=== PATIENT | female | born 1965 | race Caucasian/White ===

== ENCOUNTER 2016-11-14 01:52 | Emergency (ER) | payer MEDICARE ==
[~2016-11-14] VITALS: Ht 160 cm; Wt 75.7 kg
[~2016-11-14 01:52] MED LIST: ACYC-101 PO; PRED50 PO
[2016-11-14 02:00] VITALS: BP 105/55; PULSE 77; RESP 18; TEMP 98.4; O2SAT 95
[2016-11-14] MEDS ORDERED: GABA300C5 PO (02:11)
[2016-11-14] MEDS ORDERED: MELO-1 PO (02:11)
[2016-11-14] MEDS ORDERED: OXYC-396 PO (02:11)
[2016-11-14] MEDS ORDERED: OXYC40TA9 PO (02:11)
[2016-11-14] MEDS ORDERED: ARIP1TAB11 PO (02:11)
[2016-11-14 02:12] VITALS: BP 105/55; PULSE 77; RESP 19; TEMP 98.4; O2SAT 95
[2016-11-14] MEDS ORDERED: BACT800T5 PO (03:20)
[2016-11-14] MEDS ORDERED: DOXY100C PO (03:20)
--- NOTE | 2016-11-14 03:20 | PD ---
HPI Chief Complaint: Laceration/Skin Injury Time Seen by Provider: 03:16 Travel History International Travel<30 days: No Contact w/Intl Traveler<30days: No Traveled to known affect area: No History of Present Illness HPI The patient is a 51-year-old female that fell Monday and her left leg has redness and swelling. She called her primary care doctor and he called in a prescription for erythromycin. The erythromycin is not working. She denies any fever, nausea or vomiting. PFSH Past Medical History Hx Anticoagulant Therapy: No Arthritis: Yes Anxiety: No Depression: Yes Cancer: No Cardiovascular Problems: No Chemotherapy: No COPD: Yes Cerebrovascular Accident: No Diabetes: No Diminished Hearing: No Endocrine: No Genitourinary: No Headaches: Yes Immune Disorder: No Implanted Vascular Access Dvce: No Musculoskeletal: Yes (DJD) Neurologic: Yes Psychiatric: Yes Reproductive: No Respiratory: No Integumentary: Yes (myofascitis lower legs ) Immunizations Current: Yes Myocardial Infarction: Yes (AT AGE 19) Tetanus Vaccination: > 5 Years Influenza Vaccination: No ?: Not Menopausal: Yes : 2 Para: 2 Past Surgical History Appendectomy: Yes Section: Yes Gynecologic Surgery: Yes (C-SEC) Hysterectomy: No Joint Replacement: Yes (KNEE SURGERY X 3) Neurologic Surgery: No Other Surgery: Yes () Social History Alcohol Use: No Tobacco Use: Yes (1 PACK DAILY, 40 years) Substance Use: No Allergies-Medications (Allergen,Severity, Reaction): Coded Allergies: Amoxicillin (Unverified Allergy, Severe, 11/14/16) angioedema Latex (Verified Allergy, Severe, Hives, 11/14/16) Contrast Media (Verified Allergy, Intermediate, Hives, 11/14/16) Iodine (Verified Allergy, Mild, Hives, 11/14/16) Bees (Verified Adverse Reaction, Severe, Anaphylaxis, 11/14/16) Uncoded Allergies: CT SCAN DYE (Allergy, Severe, 05/18/11) WALNUTS (Allergy, Unknown, 01/01/14) IMITATION CRAB (Adverse Reaction, Severe, Anaphylaxis, 09/06/10) Reported Meds & Prescriptions Reported Meds & Active Scripts Active Prednisone 50 Mg Tab 50 Mg PO DAILY 5 Days Zovirax (Acyclovir) 800 Mg Tab 800 Mg PO 5 TIMES A DAY 7 Days Reported Aripiprazole 5 Mg Tab 5 Mg PO DAILY Oxycodone (Oxycodone HCl) 20 Mg Tab 20 Mg PO Q12HR Oxycontin (Oxycodone HCl) 40 Mg Tab 40 Mg PO Q8HR Meloxicam 15 Mg Tab 15 Mg PO DAILY Gabapentin 300 Mg Cap 300 Mg PO TID Review of Systems Except as stated in HPI: all other systems reviewed are Neg Physical Exam Narrative GENERAL: Well-nourished, well-developed patient in slight apparent distress with her left leg pain. SKIN: Focused skin assessment warm/dry. The left lower leg has an area of cellulitis that is about 20 x 8 cm in diameters. No lymphadenitis is present. HEAD: Normocephalic. EYES: No scleral icterus. No injection or drainage. NECK: Supple, trachea midline. No JVD or lymphadenopathy. CARDIOVASCULAR: Regular rate and rhythm without murmurs, gallops, or rubs. RESPIRATORY: Breath sounds equal bilaterally. No accessory muscle use. GASTROINTESTINAL: Abdomen soft, non-tender, nondistended. MUSCULOSKELETAL: No cyanosis, or edema. BACK: Nontender without obvious deformity. No CVA tenderness. Data Data Last Documented VS Vital Signs Date Time Temp Pulse Resp B/P Pulse Ox O2 Delivery O2 Flow Rate FiO2 11/14/16 02:12 98.4 77 19 105/55 95 11/14/16 02:00 Room Air MDM Medical Decision Making Medical Screen Exam Complete: Yes Emergency Medical Condition: Yes Medical Record Reviewed: Yes Differential Diagnosis Cellulitis left lower leg, lymphadenitis left lower leg, abscess left lower leg , allergic reaction Narrative Course The patient has cellulitis left lower leg. Plan: She will be put on Septra and doxycycline. She should follow-up with her primary care physician. If worse she should return to emergency room for consideration of admission. Diagnosis Primary Impression: Cellulitis of left lower extremity Additional Instructions: As we discussed, return to emergency department if you get worse. You may have to be admitted. Also, elevate your left leg above your heart. Med/Other Pt SpecificInfo: Prescription(s) given Scripts Doxycycline Hyclate 100 Mg [id number] Mg PO BID #20 CAP Ref 0 Prov:Dallin Beatty MD 11/14/16 Sulfamethoxazole-Trimethoprim (Bactrim DS)800-160 Mg Tab1 Tab PO BID #20 TAB Ref 0 Prov:Dallin Beatty MD 11/14/16 Disposition: 01 DISCHARGE HOME Condition: Stable Dallin Beatty MD November 14, 2016 03:20
[2016-11-14 03:27] VITALS: BP 110/54; TEMP 98.5
[2016-11-14] MEDS ORDERED: SULFAMETHOXAZOLE-TRIMETHOPRIM DS 800-160 MG TAB PO ONE (03:30)
[2016-11-14] MEDS ORDERED: DOXYCYCLINE HYCLATE 100 MG CAP PO ONE (03:30)
== END 2016-11-14 03:35 | disposition home or self-care (01) ==
LOC: PHED 01:52
DX: L03.116 Cellulitis of left lower limb (principal); M19.90 Unspecified osteoarthritis, unspecified site; F32.9 Major depressive disorder, single episode, unspecified; J44.9 Chronic obstructive pulmonary disease, unspecified; I25.2 Old myocardial infarction; F17.200 Nicotine dependence, unspecified, uncomplicated; Z79.899 Other long term (current) drug therapy
CPT/HCPCS: 99283

== ENCOUNTER 2016-11-19 15:31 | Emergency (ER) | payer MEDICARE ==
[~2016-11-19] VITALS: Ht 160 cm; Wt 79.3 kg
[~2016-11-19 15:31] MED LIST changes: +ARIP1TAB11 PO; +BACT800T5 PO; +DOXY100C PO; +GABA300C5 PO; +MELO-1 PO; +OXYC-396 PO; +OXYC40TA9 PO
[2016-11-19 15:42] VITALS: BP 99/56; PULSE 68; RESP 17; TEMP 98.1; O2SAT 99
[2016-11-19] MEDS ORDERED: PANTOPRAZOLE SODIUM 40 MG VIAL IV PUSH ONE (16:00)
[2016-11-19] MEDS ORDERED: ATROPINE/SCOPOLAM/HYOSCYAM/PB ELIXIR 10 ML CUP PO ONE (16:00)
[2016-11-19] MEDS ORDERED: ALUMINUM/MAGNESIUM/SIMETH 30 ML CUP PO ONE (16:00)
[2016-11-19 16:05] VITALS: O2SAT 94
--- NOTE | 2016-11-19 16:08 | PD ---
HPI Chief Complaint: Pain: Acute or Chronic Time Seen by Provider: 15:48 Travel History International Travel<30 days: No Contact w/Intl Traveler<30days: No Traveled to known affect area: No History of Present Illness HPI 51-year-old female complains of reflux symptom, joint pain, substernal chest pain and nausea and dyspepsia. Patient started having left leg redness and swelling after a fall recently. Patient was given erythromycin by her physician. Patient states that she had persistent redness and swelling of the right leg despite taking erythromycin. Patient was seen in emergency room 5 days ago. Patient was instructed to stop erythromycin and was given prescription for Septra and doxycycline. Patient states that she has been taking the medications as directed. Patient started having reflux symptom including burning substernally, nausea, dyspepsia. Patient also states that she has sharp shooting pain substernally occasionally. Patient also started having joint pain of extremity. Patient states that the symptoms started several days ago. Patient denies any fever or chills. Patient denies any headache. Patient denies any abdominal pain. Patient denies any focal weakness or numbness of extremity. Patient has history of chronic pain and has been taking oxycodone and OxyContin. PFSH Past Medical History Hx Anticoagulant Therapy: No Arthritis: Yes Anxiety: No Depression: Yes Cancer: No Cardiovascular Problems: No Chemotherapy: No COPD: Yes Cerebrovascular Accident: No Diabetes: No Diminished Hearing: No Endocrine: No Genitourinary: No Headaches: Yes Immune Disorder: No Implanted Vascular Access Dvce: No Musculoskeletal: Yes (DJD) Neurologic: Yes Psychiatric: Yes Reproductive: No Respiratory: No Integumentary: Yes (myofascitis lower legs ) Immunizations Current: Yes Myocardial Infarction: Yes (AT AGE 19) Tetanus Vaccination: > 5 Years Influenza Vaccination: No ?: Not Menopausal: Yes : 2 Para: 2 Past Surgical History Appendectomy: Yes Section: Yes Gynecologic Surgery: Yes (C-SEC) Hysterectomy: No Joint Replacement: Yes (KNEE SURGERY X 3) Neurologic Surgery: No Other Surgery: Yes () Social History Alcohol Use: No Tobacco Use: Yes (1.5 PPD) Substance Use: No Allergies-Medications (Allergen,Severity, Reaction): Coded Allergies: Amoxicillin (Verified Allergy, Severe, 11/19/16) angioedema Latex (Verified Allergy, Severe, Hives, 11/19/16) Contrast Media (Verified Allergy, Intermediate, Hives, 11/19/16) Iodine (Verified Allergy, Mild, Hives, 11/19/16) Bees (Verified Adverse Reaction, Severe, Anaphylaxis, 11/19/16) Uncoded Allergies: CT SCAN DYE (Allergy, Severe, 05/18/11) WALNUTS (Allergy, Unknown, 01/01/14) IMITATION CRAB (Adverse Reaction, Severe, Anaphylaxis, 09/06/10) Reported Meds & Prescriptions Reported Meds & Active Scripts Active Doxycycline Hyclate 100 Mg Cap 100 Mg PO BID Bactrim DS (Sulfamethoxazole-Trimethoprim) 800-160 Mg Tab 1 Tab PO BID Reported Aripiprazole 5 Mg Tab 5 Mg PO DAILY Oxycodone (Oxycodone HCl) 20 Mg Tab 20 Mg PO Q12HR Oxycontin (Oxycodone HCl) 40 Mg Tab 40 Mg PO Q8HR Meloxicam 15 Mg Tab 15 Mg PO DAILY Gabapentin 300 Mg Cap 300 Mg PO TID Review of Systems General / Constitutional: No: Fever Eyes: No: Visual changes HENT: No: Headaches Cardiovascular: No: Chest Pain or Discomfort Respiratory: No: Shortness of Breath Gastrointestinal: Positive: Nausea, Indigestion, No: Abdominal Pain Genitourinary: No: Dysuria Musculoskeletal: Positive: Pain Skin: No Rash Neurologic: No: Weakness Psychiatric: No: Depression Endocrine: No: Polydipsia Hematologic/Lymphatic: No: Easy Bruising Physical Exam Narrative GENERAL: Well-nourished, well-developed patient. SKIN: Focused skin assessment warm/dry. HEAD: Normocephalic. EYES: No scleral icterus. No injection or drainage. NECK: Supple, trachea midline. No JVD or lymphadenopathy. CARDIOVASCULAR: Regular rate and rhythm without murmurs, gallops, or rubs. RESPIRATORY: Breath sounds equal bilaterally. No accessory muscle use. GASTROINTESTINAL: Abdomen soft, non-tender, nondistended. MUSCULOSKELETAL: Patient has mild redness with tenderness on palpation left low leg on anterior lateral aspect of the left lower leg mid leg area. No calf Tenderness. No induration. No discharge. Sensorimotor function distally intact. BACK: Nontender without obvious deformity. No CVA tenderness. Neurologic exam normal. Data Data Last Documented VS Vital Signs Date Time Temp Pulse Resp B/P Pulse Ox O2 Delivery O2 Flow Rate FiO2 11/19/16 16:05 94 Room Air 11/19/16 15:50 18 11/19/16 15:42 98.1 68 99/56 Orders Electrocardiogram (11/19/16 15:57) Complete Blood Count With Diff (11/19/16 15:57) Comprehensive Metabolic Panel (11/19/16 15:57) Creatine Kinase (Cpk) (11/19/16 15:57) Troponin I (11/19/16 15:57) Prothrombin Time / Inr (Pt) (11/19/16 15:57) Act Partial Throm Time (Ptt) (11/19/16 15:57) Lipase (11/19/16 15:57) Urinalysis - C+S If Indicated (11/19/16 15:57) Westergren Sedimentation Rate (11/19/16 15:57) Chest, Single Ap (11/19/16 15:57) Iv Access Insert/Monitor (11/19/16 15:57) Ecg Monitoring (11/19/16 15:57) Oximetry (11/19/16 15:57) Pantoprazole Inj (Protonix Inj) (11/19/16 16:00) Al-Mag Hy-Si 40-40-4 Mg/Ml Liq (Mag-Al P (11/19/16 16:00) Kucpc-Gcpmzt-Hemwdl-Pb Liq ( Liq (11/19/16 16:00) Pantoprazole (Protonix) (11/19/16 16:30) Clindamycin Inj (Cleocin Inj) (11/19/16 16:30) Labs Laboratory Tests Test 11/19/16 11/19/16 16:00 16:20 Urine Collection Type CLEAN CATCH Urine Color YELLOW Urine Turbidity SLIGHT Urine pH 6.5 Urine Specific [place] 1.022 Urine Protein TRACE mg/dL Urine Glucose (UA) NEG mg/dL Urine Ketones NEG mg/dL Urine Occult Blood MOD Urine Nitrite NEG Urine Bilirubin NEG Urine Leukocyte Esterase NEG Urine RBC 10-14 /hpf Urine Squamous Epithelial 6-8 /hpf Cells Urine Amorphous Sediment FEW Microscopic Urinalysis Comment CULT NOT INDICATED Urine Collection Time 1600 White Blood Count 6.0 TH/MM3 Red Blood Count 4.37 MIL/MM3 Hemoglobin 10.9 GM/DL Hematocrit 33.3 % Mean Corpuscular Volume 76.2 FL Mean Corpuscular Hemoglobin 25.0 PG Mean Corpuscular Hemoglobin 32.8 % Concent Red Cell Distribution Width 15.1 % Platelet Count 419 TH/MM3 Mean Platelet Volume 6.6 FL Neutrophils (%) (Auto) 61.9 % Lymphocytes (%) (Auto) 31.8 % Monocytes (%) (Auto) 5.5 % Eosinophils (%) (Auto) 0.1 % Basophils (%) (Auto) 0.7 % Neutrophils # (Auto) 3.8 TH/MM3 Lymphocytes # (Auto) 1.9 TH/MM3 Monocytes # (Auto) 0.3 TH/MM3 Eosinophils # (Auto) 0.0 TH/MM3 Basophils # (Auto) 0.0 TH/MM3 CBC Comment AUTO DIFF Differential Comment AUTO DIFF CONFIRMED Platelet Estimate NORMAL Platelet Morphology Comment NORMAL Rouleau PRESENT Erythrocyte Sedimentation Rate 6 mm/hr Prothrombin Time 11.3 SEC Prothromb Time International 1.0 RATIO Ratio Activated Partial 45.0 SEC Thromboplast Time Sodium Level 134 MEQ/L Potassium Level 4.0 MEQ/L Chloride Level 100 MEQ/L Carbon Dioxide Level 26.8 MEQ/L Anion Gap 7 MEQ/L Blood Urea Nitrogen 12 MG/DL Creatinine 0.75 MG/DL Estimat Glomerular Filtration 81 ML/MIN Rate Random Glucose 107 MG/DL Calcium Level 8.4 MG/DL Total Bilirubin 0.2 MG/DL Aspartate Amino Transf 8 U/L (AST/SGOT) Alanine Aminotransferase 11 U/L (ALT/SGPT) Alkaline Phosphatase 88 U/L Total Creatine Kinase 47 U/L Troponin I LESS THAN 0.02 NG/ML Total Protein 8.3 GM/DL Albumin 2.3 GM/DL Lipase 68 U/L [facility] Medical Decision Making Medical Screen Exam Complete: Yes Emergency Medical Condition: Yes Interpretation(s) 1726 PM. Last Impressions Chest X-Ray 11/19/16 [id number] Signed Impressions: Service Date/Time: Saturday, November 19, 2016 16:36 - CONCLUSION: No acute cardiopulmonary process. Alvin Luther MD 1726 PM. CBC with WBC 6.0. Hemoglobin 10.9 hematocrit 33.3. MCV 76. Normal differential. Sodium 134. Cardiac enzymes are normal. UA is negative. Differential Diagnosis Differential diagnosis including gastritis, PUD, pancreatitis, cholecystitis, colitis, UTI, pyelonephritis, angina, CA, PE, pneumothorax. Narrative Course 51-year-old female with reflux symptoms, joint pain, nausea and dyspepsia. Patient being treated for left leg cellulitis with doxycycline and Septra. Diagnosis Primary Impression: Atypical chest pain Additional Impressions: GERD (gastroesophageal reflux disease) Qualified Code: K21.9 - Gastroesophageal reflux disease without esophagitis Left leg cellulitis Patient Instructions: General Instructions Additional Instructions: Stop doxycycline. Continue with Septra as directed. Clindamycin as directed. Follow-up with personal physician. Return if worse. Take Protonix as directed. Med/Other Pt SpecificInfo: Prescription(s) given, Existing Med Changed Scripts Pantoprazole (Protonix)20 Mg Tab20 Mg PO DAILY #30 TAB Prov:Arley George MD 11/19/16 Clindamycin 150 Mg Cap2 Tab PO Q6H #80 CAP Prov:Arley George MD 11/19/16 Disposition: 01 DISCHARGE HOME Condition: Stable Arley George MD November 19, 2016 16:08
[2016-11-19 16:27] LABS: AUTOMATED NEUTROPHIL # 3.8 TH/MM3 (1.8-7.7); BASOPHIL % 0.7 % (0.0-2.0); EOSINOPHIL % 0.1 % (0.0-4.0); HEMATOCRIT 33.3 % (35.0-46.0); LYMPH % 31.8 % (9.0-44.0); LYMPHOCYTE # 1.9 TH/MM3 (1.0-4.8); MEAN CELL VOLUME 76.2 FL (80.0-100.0); MEAN CORPUSCULAR HGB CONC 32.8 % (32.0-36.0); MONO % 5.5 % (0.0-8.0); NEUT % 61.9 % (16.0-70.0); PLATELET COUNT 419 TH/MM3 (150-450); RED BLOOD COUNT 4.37 MIL/MM3 (4.00-5.30); RED CELL DISTRIBUTION WIDTH 15.1 % (11.6-17.2)
[2016-11-19] MEDS ORDERED: PANTOPRAZOLE SOD 20 MG DELAYED RELEASE TAB PO ONE (16:30)
[2016-11-19] MEDS ORDERED: CLINDAMYCIN PHOS 600 MG/4 ML VIAL IM ONE (16:30)
[2016-11-19 16:33] LABS: HEMO FLAGS AUTO DIFF
[2016-11-19 16:33] LABS: GLUCOSE,URINE NEG (NEG); KETONE, URINE NEG (NEG); NITRITE,URINE NEG (NEG); PH, URINE 6.5 (5.0-8.5)
[2016-11-19 16:36] LABS: CHLORIDE 100 MEQ/L (98-107); SODIUM (NA) 134 MEQ/L (136-145)
[2016-11-19 16:40] LABS: ANION GAP 7 MEQ/L (5-15); BICARBONATE 26.8 MEQ/L (21.0-32.0); BLOOD UREA NITROGEN 12 MG/DL (7-18)
[2016-11-19 16:41] LABS: PROTHROMBIN TIME - PATIENT 11.3 SEC (9.8-11.6)
[2016-11-19 16:42] LABS: ALT (GPT) 11 U/L (10-53)
--- NOTE | 2016-11-19 16:42 | RADHPO ---
EXAM DATE/TIME: 11/19/2016 16:36 [facility] COMPARISON: CHEST SINGLE AP, October 14, 2013, 17:38. INDICATIONS : Patient complains of joint pain of entire body. MEDICAL HISTORY : Chronic obstructive pulmonary disease. SURGICAL HISTORY : None. ENCOUNTER: Initial ACUITY: 1 week PAIN SCORE: 7/10 LOCATION: Bilateral chest FINDINGS: A single view of the chest demonstrates the lungs to be symmetrically aerated without evidence of mas s, infiltrate or effusion. The cardiomediastinal contours are unremarkable. Osseous structures are intact. CONCLUSION: No acute cardiopulmonary process. Alvin Luther MD on November 19, 2016 at 16:39 Board Certified Radiologist. This report was verified electronically.
[2016-11-19 16:43] LABS: AST (GOT) 8 U/L (15-37); GLOMERULAR FILTRATION RATE 81 ML/MIN (>89)
[2016-11-19 16:44] LABS: TOTAL BILIRUBIN ADULT 0.2 MG/DL (0.2-1.0)
[2016-11-19 16:44] LABS: BLOOD, URINE MOD (NEG)
[2016-11-19 16:45] LABS: ALKALINE PHOSPHATASE 88 U/L (45-117)
[2016-11-19 16:51] LABS: METHOD OF COLLECTION CLEAN CATCH; URINE COLOR YELLOW (YELLW/STRAW)
[2016-11-19 16:52] LABS: COMMENT (UR) CULT NOT INDICATED; COMMENT2 (UR) MUCOUS PRESENT; CULTURE IF INDICATED CULT NOT INDICATED
[2016-11-19 16:54] LABS: CREATINE KINASE 47 U/L (26-192)
[2016-11-19 17:13] LABS: PLATELET ESTIMATE SMEAR NORMAL (NORMAL); PLATELET MORPHOLOGY NORMAL (NORMAL); ROULEAUX PRESENT (NORMAL); SCAN/DIFF AUTO DIFF CONFIRMED
[2016-11-19] MEDS ORDERED: PANT20 PO (17:31)
[2016-11-19] MEDS ORDERED: CLIN1CAP5 PO (17:31)
[2016-11-19 17:40] VITALS: BP 117/58; PULSE 60; RESP 16; O2SAT 98
--- NOTE | 2016-11-20 16:41 | EKG ---
Date Performed: 11/19/2016 Time Performed: 16:01:10 PTAGE: 51 years EKG: Sinus rhythm Low QRS voltages in precordial leads Borderline ECG NO PREVIOUS TRACING DOCTOR: Claudia Jarquin Interpretating Date/Time 11/20/2016 16:40:04
== END 2016-11-19 17:40 | disposition home or self-care (01) ==
LOC: PHED 15:31
DX: K21.9 Gastro-esophageal reflux disease without esophagitis (principal); R07.89 Other chest pain; L03.116 Cellulitis of left lower limb; J44.9 Chronic obstructive pulmonary disease, unspecified; I25.2 Old myocardial infarction; F32.9 Major depressive disorder, single episode, unspecified; M19.90 Unspecified osteoarthritis, unspecified site
CPT/HCPCS: 71010; 80053; 81001; 82550; 83690; 84484; 85025; 85610; 85652; 85730; 93005; 96372

== ENCOUNTER 2016-11-29 10:18 | Emergency (ER) | payer OTHER, MEDICARE ==
[~2016-11-29] VITALS: Ht 160 cm; Wt 78.0 kg
[~2016-11-29 10:18] MED LIST changes: -ACYC-101 PO; +CLIN1CAP5 PO; +PANT20 PO; -PRED50 PO
[2016-11-29 10:25] VITALS: BP 110/64; PULSE 82; RESP 18; TEMP 97.8; O2SAT 98
[2016-11-29] MEDS ORDERED: GABA600T PO (10:36)
[2016-11-29] MEDS ORDERED: SODIUM CHLORIDE 0.9% FLUSH 10 ML FLUSH IVF PRN (10:45)
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
[2016-11-29 10:59] VITALS: RESP 18; O2SAT 98
[2016-11-29] MEDS ORDERED: KETOROLAC TROMETHAMINE 30 MG/ML (IVP) VIAL IV PUSH ONE (11:00)
[2016-11-29] MEDS ORDERED: ARIP1TAB5 PO (11:10)
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
[2016-11-29 11:23] LABS: BASOPHIL # 0.1 TH/MM3 (0-0.2); BASOPHIL % 1.1 % (0.0-2.0); EOSINOPHIL % 0.7 % (0.0-4.0); HEMATOCRIT 35.5 % (35.0-46.0); HEMO FLAGS DIFF FINAL; LYMPH % 32.9 % (9.0-44.0); LYMPHOCYTE # 2.2 TH/MM3 (1.0-4.8); MEAN CELL VOLUME 76.6 FL (80.0-100.0); MEAN CORPUSCULAR HGB CONC 32.7 % (32.0-36.0); MONO % 6.1 % (0.0-8.0); NEUT % 59.2 % (16.0-70.0); PLATELET COUNT 436 TH/MM3 (150-450); RED BLOOD COUNT 4.63 MIL/MM3 (4.00-5.30); RED CELL DISTRIBUTION WIDTH 16.9 % (11.6-17.2); WHITE BLOOD COUNT 6.7 TH/MM3 (4.0-11.0)
[2016-11-29 11:40] LABS: APTT (PATIENT) 24.3 SEC (24.3-30.1); PROTHROMBIN TIME - PATIENT 11.4 SEC (9.8-11.6)
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
[2016-11-29 11:55] VITALS: BP 113/68; PULSE 64; RESP 17; TEMP 97.8; O2SAT 98
[2016-11-29 11:56] LABS: BICARBONATE 29.3 MEQ/L (21.0-32.0)
[2016-11-29 11:57] LABS: POTASSIUM 5.4 MEQ/L (3.5-5.1)
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
[2016-11-29 12:02] VITALS: RESP 18
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
[2016-11-29] MEDS ORDERED: META1TAB17 PO ×2 (12:33→12:41)
[2016-11-29 12:40] VITALS: BP 128/76; TEMP 97.8
== END 2016-11-29 12:40 | disposition home or self-care (01) ==
LOC: NEPC 10:18
DX: R51 Headache (principal); M54.5 Low back pain; R07.9 Chest pain, unspecified; F17.200 Nicotine dependence, unspecified, uncomplicated; V49.40XA Driver injured in collision with unspecified motor vehicles in traffic accident, initial encounter
CPT/HCPCS: 70450; 71010; 72125; 74176; 80048; 85025; 85610; 85730; 96374; 99285; J1885; L0150

== ENCOUNTER 2017-03-26 08:20 | Emergency (ER) | payer MEDICARE ==
[~2017-03-26 08:20] MED LIST changes: +ARIP1TAB5 PO; -BACT800T5 PO; -CLIN1CAP5 PO; -DOXY100C PO; -GABA300C5 PO; +GABA600T PO; -MELO-1 PO; +META1TAB17 PO; -OXYC40TA9 PO; -PANT20 PO
[2017-03-26 08:24] VITALS: BP 107/53; PULSE 75; RESP 18; TEMP 98.1; O2SAT 95
[2017-03-26] MEDS ORDERED: OXYC30TA62 PO (08:38)
[2017-03-26] MEDS ORDERED: BACT800T5 PO (08:44)
[2017-03-26] MEDS ORDERED: CHERSYP2 PO (08:44)
[2017-03-26] MEDS ORDERED: PRED10PA PO (08:44)
--- NOTE | 2017-03-26 08:45 | PD ---
HPI Chief Complaint: GI Complaint Time Seen by Provider: 08:40 Travel History International Travel<30 days: No Contact w/Intl Traveler<30days: No Traveled to known affect area: No History of Present Illness HPI Patient presents with complaints of cough and sore throat and heartburn. Subjective fever. No new rashes. She is a smoker. Denies nausea vomiting or diarrhea. No new rashes. Denies chest pain or shortness of breath. Denies urinary or bowel symptoms. PFSH Past Medical History Hx Anticoagulant Therapy: No Arthritis: Yes Anxiety: No Depression: Yes Cancer: No Cardiovascular Problems: No Chemotherapy: No COPD: Yes Cerebrovascular Accident: No Diabetes: No Diminished Hearing: No Endocrine: No GERD: Yes Genitourinary: No Headaches: Yes Immune Disorder: No Implanted Vascular Access Dvce: No Musculoskeletal: Yes (DJD, CHRONIC LEG PAIN SEES PAIN MANAGEMENT) Neurologic: Yes Psychiatric: Yes Reproductive: No Respiratory: No Integumentary: Yes (myofascitis lower legs ) Immunizations Current: Yes Myocardial Infarction: Yes (AT AGE 19) ?: Not Menopausal: Yes : 2 Para: 2 Past Surgical History Appendectomy: Yes Section: Yes Gynecologic Surgery: Yes Hysterectomy: No Joint Replacement: Yes (KNEE SURGERY X 3) Neurologic Surgery: No Other Surgery: Yes () Social History Alcohol Use: No Tobacco Use: Yes (1.5 PPD) Substance Use: No Allergies-Medications (Allergen,Severity, Reaction): Coded Allergies: amoxicillin (Unverified Allergy, Severe, swelling, 03/26/17) angioedema latex (Unverified Allergy, Severe, Hives, 03/26/17) diatrizoate meglumine (Unverified Allergy, Intermediate, Hives, 03/26/17) gadobenic acid (Unverified Allergy, Intermediate, Hives, 03/26/17) gadodiamide (Unverified Allergy, Intermediate, Hives, 03/26/17) gadoteridol (Unverified Allergy, Intermediate, Hives, 03/26/17) iodixanol (Unverified Allergy, Intermediate, Hives, 03/26/17) iohexol (Unverified Allergy, Intermediate, Hives, 03/26/17) iodine (Unverified Allergy, Mild, Hives, 03/26/17) potassium iodide (Unverified Allergy, Mild, Hives, 03/26/17) sodium iodide (Unverified Allergy, Mild, Hives, 03/26/17) bee venom protein (honey bee) (Unverified Adverse Reaction, Severe, Anaphylaxis, 03/26/17) Uncoded Allergies: IMITATION CRAB (Adverse Reaction, Severe, Anaphylaxis, 09/06/10) Reported Meds & Prescriptions Reported Meds & Active Scripts Active Reported Oxycontin (Oxycodone HCl) 30 Mg Tab 40 Mg PO Q8HR Abilify (Aripiprazole) 10 Mg Tab 10 Mg PO DAILY Gabapentin 600 Mg Tab 300 Mg PO TID Oxycodone (Oxycodone HCl) 20 Mg Tab 20 Mg PO Q12HR Review of Systems General / Constitutional: Positive: Fever Eyes: No: Visual changes HENT: Positive: Sore Throat, No: Headaches Cardiovascular: No: Chest Pain or Discomfort Respiratory: Positive: Cough, No: Shortness of Breath Gastrointestinal: No: Abdominal Pain Genitourinary: No: Dysuria Musculoskeletal: No: Pain Skin: No Rash Neurologic: No: Weakness Psychiatric: No: Depression Endocrine: No: Polydipsia Hematologic/Lymphatic: No: Easy Bruising Physical Exam Narrative GENERAL: Well-nourished, well-developed patient. SKIN: Focused skin assessment warm/dry. HEAD: Normocephalic. Throat erythematous mild adenopathy no exudate EYES: No scleral icterus. No injection or drainage. NECK: Supple, trachea midline. No JVD or lymphadenopathy. CARDIOVASCULAR: Regular rate and rhythm without murmurs, gallops, or rubs. RESPIRATORY: Coarse in all [place] GASTROINTESTINAL: Abdomen soft, non-tender, nondistended. MUSCULOSKELETAL: No cyanosis, or edema. BACK: Nontender without obvious deformity. No CVA tenderness. Data Data Last Documented VS Vital Signs Date Time Temp Pulse Resp B/P (MAP) Pulse Ox O2 Delivery O2 Flow Rate FiO2 03/26/17 08:24 98.1 75 18 107/53 (71) 95 Room Air MDM Medical Decision Making Medical Screen Exam Complete: Yes Emergency Medical Condition: Yes Differential Diagnosis Pharyngitis, bronchitis, pneumonia, tobacco abuse Narrative Course Assessment and plan discussed with patient at bedside Diagnosis Primary Impression: Pharyngitis Qualified Codes: J02.9 - Acute pharyngitis, unspecified Patient Instructions: General Instructions Additional Instructions: Rest fluids and Motrin, follow-up with PCP, return to emergency room with any onset of new symptoms. Encouraged smoking cessation. Med/Other Pt SpecificInfo: Prescription(s) given Scripts Guaifenesin-Codeine Liq (Cheratussin AC Liq) 100-10 Mg/5 Ml Syrp 10 ML PO Q4H Y for COUGH AND COLD SYMPTOMS, #120 ML 0 Refills Do not exceed 6 doses/24 hrs. Prov: Cuba Yu MD 03/26/17 Sulfamethoxazole-Trimethoprim (Bactrim DS) 800-160 Mg Tab 1 TAB PO BID for Infection, #20 TAB 0 Refills Prov: Cuba Yu MD 03/26/17 Prednisone (21) 10 mg tab Dose Pack (Prednisone (21) 10 mg tab Dose Pack) 10 Mg Pack 10 MG PO DIRECTED for Inflammation, #1 DSPK 0 Refills Prov: Cuba Yu MD 03/26/17 Disposition: 01 DISCHARGE HOME Condition: Good [place] Yu MD Mar 26, 2017 08:45
== END 2017-03-26 09:16 | disposition home or self-care (01) ==
LOC: PHED 08:20
DX: J02.9 Acute pharyngitis, unspecified (principal); F17.210 Nicotine dependence, cigarettes, uncomplicated; I25.2 Old myocardial infarction; J44.9 Chronic obstructive pulmonary disease, unspecified
CPT/HCPCS: 99284

== ENCOUNTER 2017-04-11 21:47 | Emergency (ER) | payer MEDICARE ==
[~2017-04-11] VITALS: Ht 160 cm; Wt 82.3 kg
[~2017-04-11 21:47] MED LIST changes: -ARIP1TAB11 PO; +BACT800T5 PO; +CHERSYP2 PO; -META1TAB17 PO; +OXYC30TA62 PO; +PRED10PA PO
[2017-04-11 22:00] VITALS: BP 110/58; PULSE 72; RESP 16; TEMP 97.8; O2SAT 96
[2017-04-11] MEDS ORDERED: SODIUM CHLORIDE 0.9% FLUSH 10 ML FLUSH IVF PRN (22:30)
[2017-04-11] MEDS ORDERED: methylPREDNISolone SOD SUCC 125 MG/2 ML VIAL IV PUSH ONE (22:30)
--- NOTE | 2017-04-11 22:32 | PD ---
HPI . Dyspnea Chief Complaint: Respiratory Symptoms Time Seen by Provider: 22:24 Travel History International Travel<30 days: No Contact w/Intl Traveler<30days: No Traveled to known affect area: No History of Present Illness HPI This patient presents complaining with dyspnea. She states that it all started "about a week ago" when she had a sore throat and cough. She states that she was seen here for same and was given prescriptions for Bactrim and prednisone. She states that she has taken those as directed. She states that her breathing got worse about 3 days ago. Dyspnea is exacerbated by activity. No relieving factor. This patient has a history of COPD and has an inhaler at home. However, she has not thought to use the inhaler. PFSH Past Medical History Hx Anticoagulant Therapy: No Arthritis: Yes Anxiety: No Depression: Yes Cancer: No Cardiovascular Problems: No Chemotherapy: No COPD: Yes Cerebrovascular Accident: No Diabetes: No Diminished Hearing: No Endocrine: No GERD: Yes Genitourinary: No Headaches: Yes Immune Disorder: No Implanted Vascular Access Dvce: No Musculoskeletal: Yes (DJD, CHRONIC LEG PAIN SEES PAIN MANAGEMENT) Neurologic: Yes Psychiatric: Yes Reproductive: No Respiratory: No Integumentary: Yes (myofascitis lower legs ) Immunizations Current: Yes Myocardial Infarction: Yes (AT AGE 19) Tetanus Vaccination: > 5 Years Influenza Vaccination: No ?: Not Menopausal: Yes : 2 Para: 2 Past Surgical History Appendectomy: Yes Section: Yes Gynecologic Surgery: Yes Hysterectomy: No Joint Replacement: Yes (KNEE SURGERY X 3) Neurologic Surgery: No Other Surgery: Yes () Social History Alcohol Use: No Tobacco Use: Yes (1.5 PPD) Substance Use: No Allergies-Medications (Allergen,Severity, Reaction): Coded Allergies: amoxicillin (Unverified Allergy, Severe, swelling, 04/11/17) angioedema latex (Unverified Allergy, Severe, Hives, 04/11/17) diatrizoate meglumine (Unverified Allergy, Intermediate, Hives, 04/11/17) gadobenic acid (Unverified Allergy, Intermediate, Hives, 04/11/17) gadodiamide (Unverified Allergy, Intermediate, Hives, 04/11/17) gadoteridol (Unverified Allergy, Intermediate, Hives, 04/11/17) iodixanol (Unverified Allergy, Intermediate, Hives, 04/11/17) iohexol (Unverified Allergy, Intermediate, Hives, 04/11/17) iodine (Unverified Allergy, Mild, Hives, 04/11/17) potassium iodide (Unverified Allergy, Mild, Hives, 04/11/17) sodium iodide (Unverified Allergy, Mild, Hives, 04/11/17) bee venom protein (honey bee) (Unverified Adverse Reaction, Severe, Anaphylaxis, 04/11/17) Uncoded Allergies: IMITATION CRAB (Adverse Reaction, Severe, Anaphylaxis, 09/06/10) Reported Meds & Prescriptions Reported Meds & Active Scripts Active Prednisone (48) 10 mg tab Dose Pack (Prednisone) 10 Mg Dspk 10 Mg PO DIRECTED Ventolin Hfa 18 GM Inh (Albuterol Sulfate) 90 Mcg/Act Aer 2 Puff INH Q4H PRN Cheratussin AC Liq (Guaifenesin-Codeine Liq) 100-10 Mg/5 Ml Syrp 10 Ml PO Q4H PRN Do not exceed 6 doses/24 hrs. Reported Oxycontin (Oxycodone HCl) 30 Mg Tab 40 Mg PO Q8HR Abilify (Aripiprazole) 10 Mg Tab 10 Mg PO DAILY Gabapentin 600 Mg Tab 300 Mg PO TID Oxycodone (Oxycodone HCl) 20 Mg Tab 20 Mg PO Q12HR Review of Systems Except as stated in HPI: all other systems reviewed are Neg General / Constitutional: No: Fever, Chills HENT: Positive: Lightheadedness Cardiovascular: No: Chest Pain or Discomfort Respiratory: Positive: Cough, Shortness of Breath Physical Exam Narrative GENERAL: This patient appears much older than her stated age of 52. She is in no acute distress. SKIN: warm/dry. Multiple bruises on her lower extremities. HEAD: Normocephalic. Atraumatic. EYES: Pupils equal and round. No scleral icterus. No injection or drainage. ENT: No nasal bleeding or discharge. Mucous membranes pink and moist. NECK: Trachea midline. Full range of motion without pain.. CARDIOVASCULAR: Regular rate and rhythm. Heart sounds are normal. RESPIRATORY: No accessory muscle use. Diffuse expiratory wheezing. GASTROINTESTINAL: Abdomen soft. Nontender. Bowel sounds present. Nondistended. MUSCULOSKELETAL: No obvious deformities. NEUROLOGICAL: Awake and alert. No obvious cranial nerve deficits. Motor grossly within normal limits. Normal speech. PSYCHIATRIC: Appropriate mood and affect; insight and judgment normal. Data Data Last Documented VS Vital Signs Date Time Temp Pulse Resp B/P (MAP) Pulse Ox O2 Delivery O2 Flow Rate FiO2 04/11/17 23:25 67 18 118/66 (83) 97 04/11/17 22:34 Room Air 04/11/17 22:00 97.8 Orders Orders Iv Access Insert/Monitor (04/11/17 22:26) Ecg Monitoring (04/11/17 22:26) Oximetry (04/11/17 22:26) Chest, Single Ap (04/11/17 22:26) Sodium Chloride 0.9% Flush (Ns Flush) (04/11/17 22:30) Methylprednisolone So Succ Inj (Solumedr (04/11/17 22:30) Albuterol-Ipratropium Neb (Duoneb Neb) (04/11/17 22:30) Electrocardiogram (04/11/17 22:13) MDM Medical Decision Making Medical Screen Exam Complete: Yes Emergency Medical Condition: Yes Medical Record Reviewed: Yes (COPD, hepatitis) Differential Diagnosis Differential diagnosis of dyspnea includes but is not limited to congestive heart failure, pneumonia, wheezing, pneumothorax, pulmonary embolism Narrative Course This patient presents with dyspnea. She is wheezing. I will treat her with Solu-Medrol and stacked nebs. Patient has refused a needle stick. I will give her oral prednisone rather than Solu-Medrol. Chest x-ray to my interpretation is negative for infiltrate. Diagnosis Primary Impression: Bronchitis Patient Instructions: Acute Bronchitis (DC), General Instructions Med/Other Pt SpecificInfo: Prescription(s) given Scripts Prednisone (48) 10 mg tab Dose Pack (Prednisone (48) 10 mg tab Dose Pack) 10 Mg Dspk 10 MG PO DIRECTED for Inflammation, #1 DSPK 0 Refills Prov: Nel Brooks MD 04/11/17 Albuterol 18 GM Inh (Ventolin Hfa 18 GM Inh) 90 Mcg/Act Aer 2 PUFF INH Q4H Y for SHORTNESS OF BREATH, #1 INHALER 0 Refills Prov: Nel Brooks MD 04/11/17 Disposition: 01 DISCHARGE HOME Condition: Stable Nel Brooks MD Apr 11, 2017 22:32
[2017-04-11] MEDS: RESP: ALBUTEROL 2.5 MG/IPRATROPIUM 0.5 MG NEB (SCH) INH ×2 (22:37→22:38)
[2017-04-11 23:25] VITALS: BP 118/66; PULSE 67; RESP 18; O2SAT 97
[2017-04-11] MEDS ORDERED: VENTAER INH (23:36)
[2017-04-11] MEDS ORDERED: PRED10PA2 PO (23:36)
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
--- NOTE | 2017-04-12 15:10 | EKG ---
Date Performed: 04/11/2017 Time Performed: 22:13:52 PTAGE: 52 years EKG: Sinus rhythm LOW QRS VOLTAGE IN PRECORDIAL LEADS ST DEVIATION AND MODERATE T-WAVE ABNORMALITY, CONSIDER ANTEROLAT ERAL ISCHEMIA ABNORMAL ECG INTERPRETATION BASED ON A DEFAULT AGE OF 40 YEARS Compared to the PREVIOUS TRACING from 11/19/16, anterolateral ST/T wave changes are new DOCTOR: Chepe West Interpretating Date/Time 04/12/2017 15:09:03
== END 2017-04-11 23:58 | disposition home or self-care (01) ==
LOC: PHED 21:47
DX: J20.9 Acute bronchitis, unspecified (principal); J44.0 Chronic obstructive pulmonary disease with (acute) lower respiratory infection; F17.200 Nicotine dependence, unspecified, uncomplicated; K21.9 Gastro-esophageal reflux disease without esophagitis; Z79.899 Other long term (current) drug therapy
CPT/HCPCS: 71010; 93005; 94640; 94664